=== PATIENT | female | born 1940 | race Caucasian/White ===

== ENCOUNTER 2018-04-25 12:45 | Inpatient (IN) | payer OTHER, MEDICAID ==
[~2018-04-25] VITALS: Ht 162.6 cm; Wt 72.6 kg
[2018-04-25 12:49] VITALS: BP_SYST 144
[2018-04-25] MEDS ORDERED: MORPHINE 4 MG/ML INJ. SYRINGE IVP ONE (15:15)
[2018-04-25] MEDS ORDERED: ACETAMINOPHEN 325 MG TABLET PO PRN (15:30)
[2018-04-25] MEDS ORDERED: [UNRECOGNIZED DRUG - CODE] TP (15:34)
[2018-04-25] MEDS ORDERED: HYDC2.5% TP (15:34)
[2018-04-25] MEDS ORDERED: DOCUSIL PO (15:34)
[2018-04-25] MEDS ORDERED: AMLO2.5T2 PO (15:34)
[2018-04-25] MEDS ORDERED: ESOM40CA53 PO (15:34)
[2018-04-25] MEDS ORDERED: FENO160 PO (15:34)
[2018-04-25] MEDS ORDERED: FEM2.5 PO (15:34)
[2018-04-25] MEDS ORDERED: ALEN10TA6 PO (15:34)
[2018-04-25] MEDS ORDERED: PRED1TAB PO (15:34)
[2018-04-25] MEDS ORDERED: FOLI-43 PO (15:34)
[2018-04-25] MEDS ORDERED: KETO60CR2 TP (15:34)
[2018-04-25] MEDS ORDERED: SITA100T11 PO (15:34)
[2018-04-25] MEDS ORDERED: METH2.5T PO (15:34)
[2018-04-25 15:58] LABS: ANION GAP 8 (5-15); CALCIUM 9.9 mg/dL (8.4-11.0); CHLORIDE 99 mmol/L (98-107); GLUCOSE 178 mg/dL (70-99); POTASSIUM 4.3 mmol/L (3.5-5.1); SODIUM SERUM 130 mmol/L (136-145); UREA NITROGEN, BLOOD 17 mg/dL (8-21)
[2018-04-25 16:07] LABS: BASOPHILS % (AUTO) 0.2 % (0.0-2.0); EOSINOPHILS % (AUTO) 0.2 % (0.0-4.0); HEMATOCRIT 40.1 % (36-48); HEMOGLOBIN 13.2 g/dL (12.0-16.0); LYMPHOCYTES # (AUTO) 1.1 K/uL (1.0-5.5); LYMPHOCYTES % (AUTO) 9.4 % (20.5-51.5); MEAN CORPUSCULAR HEMOGLOBIN 30 pg (27-31); MEAN CORPUSCULAR HGB CONC 33 % (32-36); MEAN CORPUSCULAR VOLUME 92 fL (79.0-98.0); MONOCYTES # (AUTO) 0.5 K/uL (0.0-1.0); MONOCYTES % (AUTO) 3.9 % (1.7-9.3); NEUTROPHILS % (AUTO) 86.3 % (40.0-70.0); PLATELET COUNT (AUTO) 441 K/uL (130-430); RED BLOOD CELL COUNT(AUTO) 4.36 MIL/uL (4.2-6.2); RED CELL DISTRIBUTION WIDTH 16.7 % (9.0-15.0); WHITE BLOOD COUNT (AUTO) 11.6 K/uL (4.8-10.8)
[2018-04-25 16:10] VITALS: BP_SYST 118
[2018-04-25] MEDS ORDERED: HYDROcodone/ACETAMIN 7.5-325 MG TAB PO PRN (19:30)
[2018-04-25] MEDS ORDERED: TEMAZEPAM 15 MG CAPSULE PO PRN (19:30)
[2018-04-25 19:45] VITALS: BP_SYST 144
[2018-04-25] MEDS: FENOFIBRATE 160 MG TABLET PO SCH (21:03)
[2018-04-25] MEDS: INSULIN REGULAR, HUMAN 100 UNITS/ML, 10 ML VIAL (novoLIN R) SUBCUT PRN (21:19)
[2018-04-26 00:05] VITALS: BP_SYST 136
[2018-04-26 08:00] VITALS: BP_SYST 138
[2018-04-26] MEDS: DOCUSATE SODIUM 100 MG CAPSULE PO SCH (09:00)
[2018-04-26] MEDS: LETROZOLE 2.5 MG TABLET (FEMARA) PO SCH (09:00)
[2018-04-26] MEDS: amLODIPine BESYLATE 5 MG TABLET PO SCH (09:00)
[2018-04-26] MEDS: FOLIC ACID 1 MG TABLET PO SCH (09:00)
[2018-04-26] MEDS: predniSONE 1 MG TABLET PO SCH (09:00)
[2018-04-26 11:01] LABS: PROTHROMBIN TIME 10.1 SECS (9.5-12.5)
[2018-04-26 11:16] VITALS: BP_SYST 148
[2018-04-26 12:47] LABS: BILIRUBIN,URINE NEGATIVE (NEGATIVE); BLOOD, URINE NEGATIVE (NEGATIVE); CLARITY/URINE CLEAR (CLEAR); COLOR,URINE YELLOW (YELLOW); GLUCOSE,URINE NEGATIVE (NEGATIVE); KETONES,URINE NEGATIVE (NEGATIVE); LEUKOCYTE ESTERASE ,URINE 2+ (NEGATIVE); NITRITE, URINE NEGATIVE (NEGATIVE); PROTEIN URINE NEGATIVE (NEGATIVE); UROBILINOGEN,URINE 0.2 (0.2-1.0)
[2018-04-26 12:58] LABS: BACTERIA,URINE MANY /HPF (None Seen); RBC,URINE 0-3 /HPF (0-3); WBC,URINE 20-50 /HPF (0-3); YEAST,URINE None Seen /HPF (None Seen)
[2018-04-26 12:59] LABS: MUCUS,URINE None Seen /LPF (None Seen); URINE AMORPHOUS PHOSPHATES 1+ /HPF (None Seen)
[2018-04-26] MEDS: LEVOFLOXACIN 500 MG/D5W 100 ML IV SCH (15:30)
[2018-04-26 15:48] VITALS: BP_SYST 130
[2018-04-26] MEDS ORDERED: NALBUPHINE HCL 10 MG/ML AMP IVP PRN (18:00)
[2018-04-26] MEDS ORDERED: KETOROLAC TROMETHAMINE 60 MG/2 ML VIAL IM PRN (18:00)
[2018-04-26] MEDS ORDERED: fentaNYL CITRATE/PF 100 MCG/2 ML AMP IVP PRN ×2 (18:00)
[2018-04-26] MEDS ORDERED: NALOXONE HCL 0.4 MG/ML AMP (NARCAN) IVP PRN ×2 (18:00)
[2018-04-26] MEDS ORDERED: ONDANSETRON HCL 4 MG/2 ML VIAL IVP PRN ×2 (18:00)
[2018-04-26] MEDS ORDERED: DIPHENHYDRAMINE INJ 50 MG/ML VIAL IVP PRN (18:00)
[2018-04-26 20:15] VITALS: BP_SYST 132
[2018-04-26] MEDS: FENOFIBRATE 160 MG TABLET PO SCH (21:14)
[2018-04-26] MEDS: CEFAZOLIN 1 GM IVPB PREMIX 50 ML IV SCH (21:20)
[2018-04-26] MEDS: HYDROcodone/ACETAMIN 7.5-325 MG TAB PO PRN (22:27)
[2018-04-27 00:20] VITALS: BP_SYST 137
[2018-04-27] MEDS: HYDROcodone/ACETAMIN 7.5-325 MG TAB PO PRN ×5 (02:03→21:55)
[2018-04-27] MEDS: CEFAZOLIN 1 GM IVPB PREMIX 50 ML IV SCH (05:23)
[2018-04-27] MEDS: INSULIN REGULAR, HUMAN 100 UNITS/ML, 10 ML VIAL (novoLIN R) SUBCUT PRN ×4 (06:05→20:11)
[2018-04-27 08:30] VITALS: BP_SYST 124
[2018-04-27] MEDS: DOCUSATE SODIUM 100 MG CAPSULE PO SCH (08:39)
[2018-04-27] MEDS: LETROZOLE 2.5 MG TABLET (FEMARA) PO SCH (08:39)
[2018-04-27] MEDS: predniSONE 1 MG TABLET PO SCH (08:39)
[2018-04-27] MEDS: FOLIC ACID 1 MG TABLET PO SCH (08:39)
[2018-04-27] MEDS: amLODIPine BESYLATE 5 MG TABLET PO SCH (08:41)
[2018-04-27 12:04] VITALS: BP_SYST 154
[2018-04-27] MEDS: LEVOFLOXACIN 500 MG/D5W 100 ML IV SCH (14:07)
[2018-04-27 16:15] VITALS: BP_SYST 135
[2018-04-27] MEDS: MORPHINE 4 MG/ML INJ. SYRINGE IVP PRN (16:18)
[2018-04-27] MEDS ORDERED: NS 1000 ML IV.SOLN IV ONE (17:00)
[2018-04-27] MEDS ORDERED: MIDAZOLAM HCL 5 MG/5 ML VIAL IVP ONE (17:00)
[2018-04-27] MEDS ORDERED: MORPHINE SULFATE 10MG/10ML PF AMP EP ONE (17:00)
[2018-04-27] MEDS ORDERED: WATER FOR IRRIGATION,STERILE 1,000 ML IRRIG.SOLN IR ONE (17:00)
[2018-04-27] MEDS ORDERED: BUPIVACAINE /PF 0.25% 30 ML VIAL INJ ONE (17:00)
[2018-04-27] MEDS: ENOXAPARIN SODIUM 40 MG/0.4 ML SYRINGE SUBCUT SCH (17:13)
[2018-04-27 20:00] VITALS: BP_SYST 139
[2018-04-27] MEDS: FENOFIBRATE 160 MG TABLET PO SCH (20:09)
[2018-04-28 00:29] VITALS: BP_SYST 155
[2018-04-28] MEDS: HYDROcodone/ACETAMIN 7.5-325 MG TAB PO PRN (02:44)
[2018-04-28 06:36] LABS: ANION GAP 9 (5-15); CALCIUM 9.1 mg/dL (8.4-11.0); CHLORIDE 100 mmol/L (98-107); CREATININE 0.36 mg/dL (0.55-1.30); GLUCOSE 147 mg/dL (70-99); POTASSIUM 3.8 mmol/L (3.5-5.1); SODIUM SERUM 133 mmol/L (136-145); UREA NITROGEN, BLOOD 9 mg/dL (8-21)
[2018-04-28 06:40] LABS: BASOPHILS % (AUTO) 0.5 % (0.0-2.0); EOSINOPHILS # (AUTO) 0.2 K/uL (0.0-0.4); EOSINOPHILS % (AUTO) 1.7 % (0.0-4.0); HEMATOCRIT 30.7 % (36-48); HEMOGLOBIN 10.6 g/dL (12.0-16.0); LYMPHOCYTES # (AUTO) 1.8 K/uL (1.0-5.5); LYMPHOCYTES % (AUTO) 19.3 % (20.5-51.5); MEAN CORPUSCULAR HEMOGLOBIN 32 pg (27-31); MEAN CORPUSCULAR HGB CONC 34 % (32-36); MEAN CORPUSCULAR VOLUME 92 fL (79.0-98.0); MONOCYTES % (AUTO) 10.8 % (1.7-9.3); NEUTROPHILS # (AUTO) 6.1 K/uL (1.8-7.7); NEUTROPHILS % (AUTO) 67.7 % (40.0-70.0); PLATELET COUNT (AUTO) 347 K/uL (130-430); RED BLOOD CELL COUNT(AUTO) 3.34 MIL/uL (4.2-6.2); RED CELL DISTRIBUTION WIDTH 15.9 % (9.0-15.0); WHITE BLOOD COUNT (AUTO) 9.1 K/uL (4.8-10.8)
[2018-04-28 08:00] VITALS: BP_SYST 149
[2018-04-28] MEDS: FOLIC ACID 1 MG TABLET PO SCH (08:20)
[2018-04-28] MEDS: DOCUSATE SODIUM 100 MG CAPSULE PO SCH (08:20)
[2018-04-28] MEDS: amLODIPine BESYLATE 5 MG TABLET PO SCH (08:21)
[2018-04-28] MEDS: predniSONE 1 MG TABLET PO SCH (08:21)
[2018-04-28] MEDS: LETROZOLE 2.5 MG TABLET (FEMARA) PO SCH (08:42)
[2018-04-28] MEDS: MORPHINE 4 MG/ML INJ. SYRINGE IVP PRN (09:31)
[2018-04-28] MEDS: INSULIN REGULAR, HUMAN 100 UNITS/ML, 10 ML VIAL (novoLIN R) SUBCUT PRN ×2 (11:40→16:51)
[2018-04-28 12:27] VITALS: BP_SYST 129
[2018-04-28] MEDS ORDERED: MILK OF MAGNESIA 30 ML UDC PO ONE (12:30)
[2018-04-28] MEDS: LEVOFLOXACIN 500 MG/D5W 100 ML IV SCH (13:47)
[2018-04-28] MEDS ORDERED: SSREG SUBCUT (14:11)
[2018-04-28] MEDS ORDERED: ALEN10TA6 PO (14:42)
[2018-04-28 16:24] VITALS: BP_SYST 136
[2018-04-28] MEDS ORDERED: NA PHOS,M-B/NA PHOS,DI-BA 118 ML (FLEET ENEMA) RC ONE (16:30)
[2018-04-28] MEDS: ENOXAPARIN SODIUM 40 MG/0.4 ML SYRINGE SUBCUT SCH (16:52)
[2018-04-28 17:50] VITALS: BP_SYST 136
[2018-04-28] MEDS ORDERED: AMLO5TAB4 PO (17:58)
[2018-04-28] MEDS ORDERED: APIX5TAB4 PO (18:00)
[2018-04-28] MEDS ORDERED: TEMA15CA5 PO (18:01)
[2018-05-01] MEDS ORDERED: ALENDRONATE SODIUM 70 MG TABLET (FOSAMAX) PO SCH (09:00)
== END 2018-04-28 18:40 | DRG 488 ==
LOC: SED 12:45 → STU 15:21 → SMU 16:03
PROVIDERS: ADMIT Family Medicine; ATTEND Family Medicine
PROC: 0LQQ0ZZ Repair Right Knee Tendon, Open Approach (ICD-10-PCS; 2018-04-26)
PROC: 0QBD0ZZ Excision of Right Patella, Open Approach (ICD-10-PCS; principal; 2018-04-26 15:30)
DX: S82.002A Unspecified fracture of left patella, initial encounter for closed fracture (principal); E87.1 Hypo-osmolality and hyponatremia; M06.9 Rheumatoid arthritis, unspecified; E11.9 Type 2 diabetes mellitus without complications; E66.01 Morbid (severe) obesity due to excess calories; E78.5 Hyperlipidemia, unspecified; I10 Essential (primary) hypertension; W18.2XXA Fall in (into) shower or empty bathtub, initial encounter; R26.9 Unspecified abnormalities of gait and mobility; G30.9 Alzheimer's disease, unspecified; F02.80 Dementia in other diseases classified elsewhere, unspecified severity, without behavioral disturbance, psychotic disturbance, mood disturbance, and anxiety; M81.0 Age-related osteoporosis without current pathological fracture; Z85.118 Personal history of other malignant neoplasm of bronchus and lung; Z85.42 Personal history of malignant neoplasm of other parts of uterus; Y92.091 Bathroom in other non-institutional residence as the place of occurrence of the external cause; Y99.8 Other external cause status; Y93.E1 Activity, personal bathing and showering; Z91.012 Allergy to eggs; Z91.011 Allergy to milk products; Z91.018 Allergy to other foods; Z68.27 Body mass index [BMI] 27.0-27.9, adult
CPT/HCPCS: 36415; 71045; 73564; 80048; 81000-TC; 82948; 82962; 83036; 85025; 85610-TC; 87081; 87086; 87186-TC; 88305; 88311; 93005; 96374; 97110-GP; 97530-GP; 99285; J0690; J1650; J1815; J1956; J2250; J2270; J2274; J3490; J7030; J7040; J7512